=== PATIENT | female | born 1975 | race Caucasian/White ===

== ENCOUNTER 2016-07-11 08:13 | Inpatient (IN) | payer OTHER ==
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
[2016-07-11 09:29] LABS: COLOR AMBER; LEUKOCYTE ESTERASE,URINE NEGATIVE (NEGATIVE); NITRITE,URINE NEGATIVE (NEGATIVE)
[2016-07-11 09:38] LABS: BACTERIA TRACE /hpf (NONE SEEN); MUCUS 2+ /lpf (NONE-1+)
[2016-07-11 14:30] LABS: % IMMATURE GRANULYOCYTES 0.2 % (0.0-1.1); ABSOLUTE IMMATURE GRANULOCYTES 0.01 10^3/uL (0.00-0.10); ADD DIFF? NO; ADD MORPH? NO; ADD SCAN? NO; ATYPICAL LYMPHOCYTE FLAG 10 (0-99); FRAGMENT RBC FLAG 0 (0-99); HEMATOCRIT 38.8 % (38.0-47.0); HEMOGLOBIN 13.2 g/dL (12.6-16.3); LEFT SHIFT FLG 0 (0-99); LIPEMIA HEMOLYSIS FLAG 90 (0-99); MEAN CELL HEMOGLOBIN 31.4 pg (27.9-34.1); MEAN CELL VOLUME 92.2 fL (81.5-99.8); MEAN PLATELET VOLUME 10.2 fL (8.7-11.7); PLATELET CLUMPS FLAG 0 (0-99); PLATELET COUNT 247 10^3/uL (150-400); RED BLOOD CELL COUNT 4.21 10^6/uL (4.18-5.33); RED CELL DISTRIBUTION WIDTH 13.2 % (11.5-15.2)
[2016-07-11 14:43] LABS: ANION GAP 13 mEq/L (8-16); CALCIUM 9.3 mg/dL (8.5-10.4); CARBON DIOXIDE 24 mEq/l (22-31); CHLORIDE 101 mEq/L (97-110); CREATININE 0.5 mg/dL (0.6-1.0); ETHANOL SERUM < 10 mg/dL (0-10); GLOMERULAR FILTRATION RATE > 60; GLUCOSE 89 mg/dL (70-100); POTASSIUM 4.7 mEq/L (3.5-5.2); SODIUM 138 mEq/L (134-144)
[2016-07-11] MEDS ORDERED: HYDROmorphONE/DILAUDID 1 MG/ML SYR IVP ONE (14:48)
[2016-07-11] MEDS ORDERED: ONDANSETRON 4 MG/2 ML VIAL IVP PRN (15:10)
[2016-07-11] MEDS ORDERED: ACETAMINOPHEN 325 MG TAB PO PRN (15:10)
[2016-07-11] MEDS ORDERED: ONDANSETRON DISINTEGRATING 4 MG TAB PO PRN (15:10)
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
[2016-07-11] MEDS ORDERED: BISACODYL 10 MG SUPP PR PRN (17:29)
[2016-07-11] MEDS ORDERED: LACTULOSE 20 GM/30 ML UDCUP PO PRN (17:29)
[2016-07-11] MEDS ORDERED: POLYETHYLENE GLYCOL 3350 17 GM PKT PO PRN (17:29)
[2016-07-11] MEDS ORDERED: MAGNESIUM HYDROXIDE 30 ML UDCUP PO PRN (17:29)
--- NOTE | 2016-07-11 17:57 | SOAPPROG ---
SOAP Progress Note Assessment/Plan: Assessment: Plan: 07/11/16 17:54 R 5th MC fracture displaced and angulated. Plan for ORIF either as outpatient next week or Possibly tomorrow. Patient wishes to proceed. Full consult note dictated today. Objective: Vital Signs Temp Pulse Resp BP Pulse Ox 36.3 C 59 L 16 117/73 97 07/11/16 08:13 07/11/16 15:18 07/11/16 15:18 07/11/16 15:18 07/11/16 15:18 Laboratory Results 07/11/16 14:15 07/11/16 14:15 07/10/16 07/11/16 07/12/16 05:59 05:59 05:59 Intake Total 10 Balance 10 ICD10 Worksheet Patient Problems: Problems Problem Status Onset Fracture of fifth metacarpal bone Acute Pelvis ilium fracture Acute Rupture of anterior cruciate ligament of right knee Acute
--- NOTE | 2016-07-11 19:29 | GCON ---
[f rep st] CONSULTATION DATE OF CONSULTATION: 07/11/2016 REASON FOR CONSULTATION: Right 5th metacarpal fracture. HISTORY: The patient is a 41-year-old female who sustained a series of falls 2 days ago while hikin [place]. She has a history of traumatic brain injuries and has chronic encephalopathy. She does have abram e mild spastic hemiparesis on the left side and falls intermittently. She was hiking when this rece nt event occurred. Her situation worsened where she was having difficulty ambulating and had proble ms with her right hand when she sought treatment at [facility] Emergency Department. They identified a left iliac crest fracture and right 5th metacarpal shaft fracture. I was asked to see her specifically for a 5th metacarpal shaft fracture. The details of her injury and her past medical history are well detailed in her admission H and P, and her emergency department intake maulik smith. EXAMINATION: EXTREMITIES: Her right hand is in a short-arm splint. It extends just past the PIP j oint of the small finger. The ulnar 3 digits are included in her splint; however, the index finger and thumb are freed for pinch position. She has a grossly normal sensory examination to exposed sma ll finger and ring finger tips within her splint. Capillary refill is 2 seconds or less. RADIOLOGY: X-rays show a spiral oblique fracture of the 5th metacarpal shaft that is displaced and angulated. The shaft is rotated into supination versus proximal segment. IMPRESSIONS/RECOMMENDATIONS: Fifth metacarpal shaft fracture. It is unreduced and is improperly al igned. I think that the angular deformity will not be a problem, but the rotational deformity will be a considerable problem. I suspect with flexion of the small finger MP joint it will scissor acro ss the axis of the ring finger due to the supinated position of the metacarpal shaft versus the prox imal segment. This is best treated with open reduction, internal fixation with screw fixation follo wed by splint application. Juju will be unable to use her right hand for weightbearing in eithe r a walker or crutches. I think this would, however, be obviated somewhat with the use of a platfor m attachment either to a crutch or walker. Due to balance issues, it has, I think, been pre-establi shed that crutches are not suitable for her due to her pre-existing brain injury and encephalopathy. We will plan to treat her either early next week as an outpatient or possibly tomorrow while an inpa tient and recovering from the hip fracture to the extent where she is able to ambulate. I will wait and see what the patient's desires are in terms of treating this as quickly as possible, or as an o utpatient next week. /[id number]/MODL
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
[2016-07-11] MEDS: SENNOSIDES/DOCUSATE SODIUM TAB PO SCH (21:11)
[2016-07-11] MEDS: ACETAMINOPHEN 325 MG TAB PO SCH (21:11)
[2016-07-12 05:24] LABS: ANION GAP 10 mEq/L (8-16); CALCIUM 9.5 mg/dL (8.5-10.4); CARBON DIOXIDE 24 mEq/l (22-31); CHLORIDE 105 mEq/L (97-110); CREATININE 0.6 mg/dL (0.6-1.0); GLOMERULAR FILTRATION RATE > 60; GLUCOSE 103 mg/dL (70-100); POTASSIUM 4.7 mEq/L (3.5-5.2); SODIUM 139 mEq/L (134-144)
[2016-07-12] MEDS: ACETAMINOPHEN 325 MG TAB PO SCH ×3 (05:58→19:56)
[2016-07-12] MEDS ORDERED: Herbals/Supplements -Info Only PO SCH (09:00)
[2016-07-12] MEDS: ENOXAPARIN 40 MG/0.4 ML SYR SC SCH (09:48)
[2016-07-12] MEDS: OMEGA-3 FATTY ACIDS 1,000 MG CAP PO SCH (09:49)
[2016-07-12] MEDS: CYANO/VITAMIN B12 1000 MCG TAB PO SCH (09:49)
[2016-07-12] MEDS: SENNOSIDES/DOCUSATE SODIUM TAB PO SCH ×2 (09:49→19:52)
--- NOTE | 2016-07-12 11:21 | HOSPPROG ---
Hospitalist Progress Note Assessment/Plan: Patient is a 41-year-old female who presented with left hip pain after sustaining a fall while hiking. She was hiking and tripped and fell on her right hand and immediately had sharp pain. She then fell backwards and hit her left hip on a rock. Today is my 1st encounter with the patient. Chart reviewed. * 5th metatarsal fx: OR now with Dr Bauer *Two nondisplaced left iliac wing fx -Dr Navarro to see * gait instability/frequent falling - Will ask Physical therapy and Occupational therapy to further evaluate - have also ordered an inpatient rehabilitation consult * traumatic brain injury/ one in 1996 and the 2nd in 2002 - likely impacting the above *CHI * DVT prophylaxis - low molecular weight heparin Plan: OR now/ patient has asked me to call her sisterUte/ which I did ([phone]) Subjective: Juju is not complaining of any pain except to the left hip area. Objective: Vital Signs Temp Pulse Resp BP Pulse Ox 36.6 C 63 16 100/63 84 L 07/12/16 08:00 07/12/16 08:00 07/12/16 08:00 07/12/16 08:00 07/12/16 08:00 Laboratory Results 07/11/16 14:15 07/12/16 04:54 07/11/16 07/12/16 07/13/16 05:59 05:59 05:59 Intake Total 860 Output Total 1500 100 Balance -640 -100 - Physical Exam Constitutional: other (thin) Eyes: PERRL Ears, Nose, Mouth, Throat: hearing normal Cardiovascular: regular rate and rhythym Respiratory: no respiratory distress Skin: warm, other ( right hand in a dressing) Musculoskeletal: muscular tenderness, generalized weakness Neurologic: AAOx3 Psychiatric: interacting appropriately ICD10 Worksheet Patient Problems: Problems Problem Status Onset Fracture of fifth metacarpal bone Acute Pelvis ilium fracture Acute Rupture of anterior cruciate ligament of right knee Acute
[2016-07-12] MEDS ORDERED: BUPIVACAINE 0.25% 30 ML SDV ONE (12:06)
[2016-07-12] MEDS ORDERED: BACITRACIN 50,000 UNITS/10 ML SYR IRR ONE (12:06)
[2016-07-12] MEDS ORDERED: fentaNYL 100 MCG/2 ML INJ ONE ×2 (12:08→13:54)
[2016-07-12] MEDS ORDERED: PROPOFOL/EMULSION 500 MG/50 ML BOTTLE IV ONE (12:08)
[2016-07-12] MEDS ORDERED: LIDOCAINE 2% 100 MG/5 ML SYR ONE (12:10)
[2016-07-12] MEDS ORDERED: ceFAZolin 2 GM/DEXTROSE 100 ML IV ONE (12:30)
[2016-07-12] MEDS ORDERED: MIDAZOLAM 2 MG/2 ML VIAL ONE (12:33)
[2016-07-12] MEDS ORDERED: PHENYLEPHRINE HCL 100 MCG/ML SYR ONE (12:45)
[2016-07-12] MEDS ORDERED: KETOROLAC 30 MG/1 ML SDV ONE (13:15)
--- NOTE | 2016-07-12 13:39 | POSTOPPROG ---
Post Op Note Date of Operation: 07/12/16 Surgeon: Deon Bauer Anesthesiologist: ya Anesthesia: LMA Pre-op Diagnosis: R 5th MC shaft Fx Post-op Diagnosis: Same Procedure: ORIF R 5th MC shaft Fx Inf/Abcess present in the surg proc area at time of surgery?: No EBL: Minimal Complications: None
--- NOTE | 2016-07-12 14:02 | GOP ---
[f rep st] OPERATIVE REPORT DATE OF OPERATION: 07/12/2016 SURGEON: Deon Bauer MD PREOPERATIVE DIAGNOSIS: Right 5th metacarpal shaft displaced angulated fracture. POSTOPERATIVE DIAGNOSIS: Right 5th metacarpal shaft displaced angulated fracture. PROCEDURE PERFORMED: Open reduction, internal fixation, right 5th metacarpal fracture. FINDINGS: The reduction was anatomical and was held in position with a [employer]ynthes titanium modular saavedra d 2.0 DCP plate with 4 holes. INDICATIONS: The patient is a 41-year-old woman, who fell several days ago sustaining the above fra cture. The fracture is angulated and displaced to the extent, and it being a border digit, it is ne cessary to treat this with anatomical realignment and internal fixation. DESCRIPTION OF PROCEDURE: After routinely checking the patient's identification and consent, and a successful induction of LMA general anesthetic, the patient's right upper extremity was prepped and draped in the usual standard fashion. Exsanguinated the limb with an Esmarch wrap and pneumatic giacomo rniquet previously placed about the proximal right arm, was inflated to 250 mmHg. A surgical time-o ut was completed. A midline longitudinal incision centered over the 5th metacarpal shaft was britta d sharply through the skin, and then bluntly to her minimal subcutaneous layer. I dissected down to the level of the extensor tendons. I the extensor tendons and then performed a subperios teal dissection of the 5th metacarpal shaft. There was 1 small comminuted segment from the ulnar di stal aspect that was unattached to any soft tissue. As such, this was discarded. I evacuated fract ure hematoma. I then reduced the fracture. This appeared to be a long oblique fracture. However, the length of the obliquity was such that a very thin spicules of bone projected proximally on the r adial side segment. I reduced the fracture and held it reduced with a pointed bone tenaculum. I th en affixed the above-noted plate. The 3rd screw from most proximal was placed in a lag screw fashio n, across the fracture. The remaining screws were placed in standard AO technique. Excellent purch ase was achieved with the screws. The FluoroScan unit were used to verify that the fracture was fuentes tomically reduced and the hardware was appropriately positioned. Satisfied with this, I irrigated t he wound once again, and closed the periosteum over the plate, with 3-0 Vicryl suture. The subcutan eous layer was closed with 3-0 Vicryl and the skin with subcuticular 4-0 Monocryl, followed by Steri -Strips. A sterile bulky dressing was applied followed by a plaster ulnar gutter splint. The patie nt was reversed from her anesthetic and extubated in the operating room. She was transferred to the recovery room in excellent condition. She tolerated procedure well. There were no complications. /[id number]/MODL
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
[2016-07-12] MEDS: ceFAZolin 2 GM/DEXTROSE 100 ML IV SCH (19:52)
[2016-07-12] MEDS: oxyCODONE IR 5 MG TAB PO PRN (19:55)
[2016-07-13] MEDS: ceFAZolin 2 GM/DEXTROSE 100 ML IV SCH (05:11)
[2016-07-13] MEDS: ACETAMINOPHEN 325 MG TAB PO SCH ×3 (05:11→20:32)
[2016-07-13] MEDS: CYANO/VITAMIN B12 1000 MCG TAB PO SCH (09:39)
[2016-07-13] MEDS: ENOXAPARIN 40 MG/0.4 ML SYR SC SCH (09:39)
[2016-07-13] MEDS: SENNOSIDES/DOCUSATE SODIUM TAB PO SCH ×2 (09:39→20:33)
[2016-07-13] MEDS: OMEGA-3 FATTY ACIDS 1,000 MG CAP PO SCH (09:39)
[2016-07-13] MEDS: oxyCODONE IR 5 MG TAB PO PRN ×3 (09:44→20:33)
--- NOTE | 2016-07-13 11:48 | SOAPPROG ---
SOPETRONA Progress Note Assessment/Plan: Assessment:Doing fine Plan:OK to go to rehab. She has already made a F/U appointment with me for her right hand fracture. Subjective: Pain control adequate Objective: Vital Signs Temp Pulse Resp BP Pulse Ox 36.6 C 57 L 18 139/78 H 95 07/13/16 11:30 07/13/16 11:30 07/13/16 11:30 07/13/16 11:30 07/13/16 11:30 Laboratory Results 07/11/16 14:15 07/12/16 04:54 07/12/16 07/13/16 07/14/16 05:59 05:59 05:59 Intake Total 860 2400 Output Total 1500 2300 Balance -640 100 CSMT intact in exposed right small finger. Splint comfortable and intact ICD10 Worksheet Patient Problems: Problems Problem Status Onset Fracture of fifth metacarpal bone Acute Pelvis ilium fracture Acute Rupture of anterior cruciate ligament of right knee Acute
--- NOTE | 2016-07-13 12:09 | HOSPPROG ---
Hospitalist Progress Note Assessment/Plan: Patient is a 41-year-old female who presented with left hip pain after sustaining a fall while hiking. She was hiking and tripped and fell on her right hand and immediately had sharp pain. She then fell backwards and hit her left hip on a rock. * 5th metatarsal fx: s/p ORIF with Dr Bauer -has a f/u appt w him *Two nondisplaced left iliac wing fx -evaluated by orthopedic/WBAT * gait instability/frequent falling - OT is recommending IP rehab - using walker * traumatic brain injury/ one in 1996 and the 2nd in 2002 - likely impacting the above *Cannibis use -likely impacting her gait stability * DVT prophylaxis - low molecular weight heparin Plan: patient would benefit from IP rehab/ to evaluate Friday Subjective: Juju is doing well/ hopeful to go to rehab. Objective: Vital Signs Temp Pulse Resp BP Pulse Ox 36.6 C 57 L 18 139/78 H 95 07/13/16 11:30 07/13/16 11:30 07/13/16 11:30 07/13/16 11:30 07/13/16 11:30 Laboratory Results 07/11/16 14:15 07/12/16 04:54 07/12/16 07/13/16 07/14/16 05:59 05:59 05:59 Intake Total 860 2400 Output Total 1500 2300 Balance -640 100 - Physical Exam Constitutional: no apparent distress, other (thin) Eyes: PERRL Ears, Nose, Mouth, Throat: hearing normal Respiratory: no respiratory distress Skin: warm Musculoskeletal: generalized weakness Neurologic: AAOx3 Psychiatric: interacting appropriately, not anxious, not encephalopathic ICD10 Worksheet Patient Problems: Problems Problem Status Onset Fracture of fifth metacarpal bone Acute Pelvis ilium fracture Acute Rupture of anterior cruciate ligament of right knee Acute
[2016-07-14] MEDS: oxyCODONE IR 5 MG TAB PO PRN ×3 (05:19→21:03)
[2016-07-14] MEDS: ACETAMINOPHEN 325 MG TAB PO SCH ×3 (05:19→21:02)
[2016-07-14] MEDS: SENNOSIDES/DOCUSATE SODIUM TAB PO SCH ×2 (08:40→21:03)
[2016-07-14] MEDS: ENOXAPARIN 40 MG/0.4 ML SYR SC SCH (08:40)
[2016-07-14] MEDS: OMEGA-3 FATTY ACIDS 1,000 MG CAP PO SCH (08:40)
[2016-07-14] MEDS: CYANO/VITAMIN B12 1000 MCG TAB PO SCH (08:40)
--- NOTE | 2016-07-14 10:34 | HOSPPROG ---
Hospitalist Progress Note Assessment/Plan: Patient is a 41-year-old female who presented with left hip pain after sustaining a fall while hiking. She was hiking and tripped and fell on her right hand and immediately had sharp pain. She then fell backwards and hit her left hip on a rock. * 5th metatarsal fx: s/p ORIF with Dr Bauer -has a f/u appt w him *Two nondisplaced left iliac wing fx -evaluated by orthopedic/WBAT * gait instability/frequent falling - OT is recommending IP rehab - using walker/doing overall well with ambulation * traumatic brain injury/ one in 1996 and the 2nd in 2002 - likely impacting the above *Cannibis use -likely impacting her gait stability * DVT prophylaxis - low molecular weight heparin Plan: patient would benefit from IP rehab/ to evaluate Friday Subjective: Juju has some pain at left hip area and in her right hand, but overall is manageable. Objective: Vital Signs Temp Pulse Resp BP Pulse Ox 36.3 C 68 15 112/72 98 07/14/16 08:00 07/14/16 08:00 07/14/16 08:00 07/14/16 08:00 07/14/16 08:00 Laboratory Results 07/11/16 14:15 07/12/16 04:54 07/13/16 07/14/16 07/15/16 05:59 05:59 05:59 Intake Total 2400 1900 Output Total 2300 Balance 100 1900 - Physical Exam Constitutional: no apparent distress, other (thin) Eyes: PERRL Ears, Nose, Mouth, Throat: hearing normal Cardiovascular: regular rate and rhythym Respiratory: no respiratory distress Skin: warm Musculoskeletal: generalized weakness Neurologic: AAOx3 Psychiatric: interacting appropriately ICD10 Worksheet Patient Problems: Problems Problem Status Onset Fracture of fifth metacarpal bone Acute Pelvis ilium fracture Acute Rupture of anterior cruciate ligament of right knee Acute
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
[2016-07-14 23:30] VITALS: TEMP 97.6
[2016-07-15] MEDS: ACETAMINOPHEN 325 MG TAB PO SCH ×2 (06:46→13:36)
[2016-07-15 07:57] VITALS: BP 121/74; PULSE 70; RESP 15; O2SAT 97
[2016-07-15] MEDS: OMEGA-3 FATTY ACIDS 1,000 MG CAP PO SCH (09:08)
[2016-07-15] MEDS: SENNOSIDES/DOCUSATE SODIUM TAB PO SCH (09:08)
[2016-07-15] MEDS: CYANO/VITAMIN B12 1000 MCG TAB PO SCH (09:08)
[2016-07-15] MEDS: ENOXAPARIN 40 MG/0.4 ML SYR SC SCH (09:08)
[2016-07-15] MEDS: oxyCODONE IR 5 MG TAB PO PRN ×2 (09:10→13:36)
--- NOTE | 2016-07-15 11:14 | HOSPPROG ---
Hospitalist Progress Note Assessment/Plan: Patient is a 41-year-old female who presented with left hip pain after sustaining a fall while hiking. She was hiking and tripped and fell on her right hand and immediately had sharp pain. She then fell backwards and hit her left hip on a rock. * 5th metatarsal fx: s/p ORIF with Dr Bauer -has a f/u appt w him *Two nondisplaced left iliac wing fx -evaluated by orthopedic/WBAT * gait instability/frequent falling - declining SNF if she can't go to rehb - using walker/doing overall well with ambulation * traumatic brain injury/ one in 1996 and the 2nd in 2002 - likely impacting the above *Cannibis use -likely impacting her gait stability * DVT prophylaxis - low molecular weight heparin Plan: patient doesn't qualify for IP rehab/ reviewed this with Jessenia/ spoke with Patient's sister, Ute, who has been her sister's advocate and support. Ute is also an OT/ the patient doesn't want to go to SNF even just for rehab. Her sister feels she will be fine if she has a script for a platform walker/ right side and her sister is getting her a wheelchair. Home care will be ordered. Her sister will be sure she has enough food and support at home. The patient lives with her boyfriend who is home in the evenings/ Subjective: Juju is upset she can't go to IP rehab/ declining SNF/ says she will be fine at home Objective: Vital Signs Temp Pulse Resp BP Pulse Ox 36.4 C 70 15 121/74 H 97 07/15/16 07:56 07/15/16 07:56 07/15/16 07:56 07/15/16 07:56 07/15/16 07:56 Laboratory Results 07/11/16 14:15 07/12/16 04:54 07/14/16 07/15/16 07/16/16 05:59 05:59 05:59 Intake Total 1900 1800 Balance 1900 1800 - Physical Exam Constitutional: no apparent distress, other (thin) Eyes: PERRL Ears, Nose, Mouth, Throat: hearing normal Respiratory: no respiratory distress Skin: warm Musculoskeletal: generalized weakness Neurologic: AAOx3 Psychiatric: interacting appropriately, other (impulsive) ICD10 Worksheet Patient Problems: Problems Problem Status Onset Fracture of fifth metacarpal bone Acute Pelvis ilium fracture Acute Rupture of anterior cruciate ligament of right knee Acute
--- NOTE | 2016-07-15 11:44 | PDIAF ---
- Diagnosis Diagnosis: 5th metatarsal fx s/p ORIF, 2 nondisplaced iliac wing fx, TBI Code Status: Full Code - Medication Management Discharge Medications: Medications to Continue on Transfer medroxyPROGESTERone [Depo-Provera 150 mg/ml (*)] 150 mg IM Q90D 10/13/15 [Last Taken 11/23/15] Cyanocobalamin [Vitamin B12 (*)] 1,000 mcg PO DAILY 07/11/16 [Last Taken ] Herbals/Supplements -Info Only 1 ea PO DAILY 07/11/16 [Last Taken Unknown] [employer]-3 Fatty Acids [Fish Oil 1000 mg (*)] 1,000 mg PO DAILY 07/11/16 [Last Taken 07/11/16] Acetaminophen [Tylenol 325mg (*)] 650 mg PO Q8 #0 tab 07/15/16 [Last Taken Unknown] Polyethylene Glycol 3350 [Miralax 17 gm (*)] 17 gm PO DAILY PRN #0 pkt 07/15/16 [Last Taken Unknown] Sennosides/Docusate Sodium [Senokot-S] 1 - 2 tab PO BID #0 tab 07/15/16 [Last Taken Unknown] Discharge Medications: Refer to the Discharge Home Medication list for PRN reason. PICC Care - Routine: N/A - Orders Services needed: Home Care, Physical Therapy, Occupational Therapy Home Care Face to Face: I certify that this patient was under my care and that I had the required [id number] encounter meeting the encounter requirements on the discharge day. My findings support the fact that the patient is homebound as defined in CMS Chapter 7 Medicare Benefits Manual 30.1.1, The condition of the patient is such that there exists a normal inability to leave home and consequently, leaving home would require a considerable and taxing effort. Diet Recommendation: no restrictions on diet Diet Texture: Regular Texture Diet Additional: he patient is safe to use a wheelchair. You have been referred to a hand specialist and an orthopedic surgery. You have an appointment at [facility], on July 15, at 1:30. Please arrive at 1:15pm, for check in. They are located at [address] [place] [address]. . Wear splint until you are reevaluated by a hand surgeon. Please call Dr. Bauer's office today to arrange for surgery as soon as possible. Due to hand injury, do not use crutches or walker, until you are evaluated by the hand surgeon. Use your wheelchair until reassessed by orthopedic surgeon. I recommend Ibuprofen ( Motrin, Advil) or Naproxen Sodium (Aleve) for pain and anti-inflammatory effects. You may take either one, but do not take both. Your dose is: Ibuprofen 600 mg every 6-8 hours with food. OR. Naproxen Sodium (Aleve) 220 mg every 12 hours. A script has been faxed in for a platform walker to [facility] - Follow Up Care Current Providers and Referrals: Simone Boone MD [Medical Doctor] - As per Instructions Deon Bauer MD [Medical Doctor] - As per Instructions (Pt is encouraged to follow up w/ Dr. Bauer 10-14 days postoperatively, or sooner with any additional concerns or complaints. She is encouraged to contact the office as soon as possible to schedule this appointment.) Ayleen Goncalves MD [Primary Care Provider] - As per Instructions
--- NOTE | 2016-07-15 14:16 | GDS ---
[f rep st] DISCHARGE SUMMARY DISCHARGE DIAGNOSES: 1. Fifth metatarsal fracture. 2. Nondisplaced left iliac wing fractures. 3. Gait instability with frequent falling. 4. Traumatic brain injury, one in 1996, and the second in 2002. 5. Cannabis use. CONSULTATIONS DURING HER STAY: 1. Dr. Deon Bauer. 2. Dr. Paula Amaya. 3. Dr. Simone Boone. HISTORY: The patient is a 41-year-old female who has a history of 2 traumatic brain injuries. She presented to the emergency room with left hip pain after falling 2 days prior to her admission. She was hiking and tripped and fell on the right hand and immediately had sharp pain. She then leaned backwards and hit her left hip on a rock. She came to the hospital for further evaluation. She was evaluated by [facility]. She had a CT of her pelvis, which showed 2 nondisplaced left iliac wing fractures. No hip fracture. Her hand x-ray showed an acute minimally displaced midshaft metacarpal fracture. She was seen and evaluated by Dr. Bauer. On 07/12/2016 she had an open reduction internal fixation of a right 5th metacarpal fracture. She has been ambulating well with a platform walker. She has declined to go to a nursing home facility. I have spoken with her sister, Ute, who is an occupational therapist, who will provide good support for her sister. In addition, she will get home care, PT, and OT. HOSPITAL COURSE PER PROBLEM: 1. Fifth metatarsal fracture. She is status post ORIF. She is doing well. She has followup with Dr Bauer. 2. Nondisplaced left iliac wing fractures. She was evaluated by Dr. Boone. She can be weightbearing as tolerated. 3. Gait instability with frequent falling. She is actually doing quite well with the walker. 4. Traumatic brain injury, one in 1996, and the second in 2002. This is likely impacting her gait instability. 5. Cannabis use. Recommending she avoid this because this also will increase her risk of falling. PENDING LABS AND TESTS: None. CONDITION AT DISCHARGE: Stable. Blood pressure is 121/74, respiratory rate is 15, heart rate is 70, O2 saturation on room air 97%, temperature 36.4 Celsius. MEDICATIONS AT DISCHARGE: Please see the EMR. DISCHARGE INSTRUCTIONS: 1. It is okay for her to use a wheelchair. She has been referred to hand specialist and Orthopedic Surgery. She has an appointment at [facility] on July 15 at 1:30. 2. Wear her splint until she is re-evaluated by the hand surgeon. 3. Use ibuprofen or Aleve for pain and anti-inflammatory effects. She can take either one, but not to take both. 4. A script has been faxed for a platform walker to [facility]. 5. If she develops any fever, chills, chest pain, or worsening pain to return to the ER. Greater than 30 minutes discharging and coordinating care. /[id number]/MODL MTDD
== END 2016-07-15 18:12 | disposition home health service (06) | DRG 513 ==
LOC: OBSVTOIN 14:14 → F3N 15:55
PROVIDERS: ADMIT Internal Medicine; ATTEND Internal Medicine
PROC: 0PSP04Z Reposition Right Metacarpal with Internal Fixation Device, Open Approach (ICD-10-PCS; principal; 2016-07-12 12:00)
DX: S62.326A Displaced fracture of shaft of fifth metacarpal bone, right hand, initial encounter for closed fracture (principal); S32.392A Other fracture of left ilium, initial encounter for closed fracture; S92.351A Displaced fracture of fifth metatarsal bone, right foot, initial encounter for closed fracture; W01.0XXA Fall on same level from slipping, tripping and stumbling without subsequent striking against object, initial encounter; Y93.01 Activity, walking, marching and hiking; R29.6 Repeated falls; R26.89 Other abnormalities of gait and mobility; F12.90 Cannabis use, unspecified, uncomplicated; Z87.820 Personal history of traumatic brain injury; Z72.0 Tobacco use; Z80.3 Family history of malignant neoplasm of breast
CPT/HCPCS: 80305; 92523-GN; 96374; 97116-GP; 97161-GP; 97166-GO; 97530-GO; 97535-GO; C1713; G0480; G8978-GP-CJ; G8979-GP-CI; G8987-GO-CK; G8988-GO-CI; G9165-GN-CI; G9166-GN-CI; G9167-GN-CI; J0690; J1170; J1650; J1885; J2001; J2250; J2370; J2704; J3010

== ENCOUNTER → 2017-01-08 | Outpatient (CLI) | payer OTHER | LOC: BMCIMAGING 07:41 | DX: Z12.31 Encounter for screening mammogram for malignant neoplasm of breast (principal); Z80.3 Family history of malignant neoplasm of breast | CPT/HCPCS: G0202 ==

== ENCOUNTER → 2017-01-24 | Outpatient (CLI) | payer OTHER | LOC: BMCIMAGING 10:43 | PROVIDERS: ATTEND Family Medicine | DX: R92.8 Other abnormal and inconclusive findings on diagnostic imaging of breast (principal) | CPT/HCPCS: 76641; G0206 ==

== ENCOUNTER → 2017-04-07 | Outpatient (CLI) | payer OTHER | LOC: BMCIMAGING 10:55 | PROVIDERS: ATTEND Family Medicine | DX: S49.91XA Unspecified injury of right shoulder and upper arm, initial encounter (principal); W01.0XXA Fall on same level from slipping, tripping and stumbling without subsequent striking against object, initial encounter; Y93.01 Activity, walking, marching and hiking ==

== ENCOUNTER → 2017-06-20 | Outpatient (CLI) | payer OTHER | LOC: FIMAGING 06-18 13:07 | PROVIDERS: ATTEND Physician Assistant | DX: S83.31XA Tear of articular cartilage of right knee, current, initial encounter (principal); M94.8X6 Other specified disorders of cartilage, lower leg; M22.41 Chondromalacia patellae, right knee; M71.21 Synovial cyst of popliteal space [Baker], right knee ==

== ENCOUNTER → 2017-07-28 | Outpatient (CLI) | payer OTHER | LOC: BMCIMAGING 09:34 | DX: R92.8 Other abnormal and inconclusive findings on diagnostic imaging of breast (principal) ==

== ENCOUNTER 2018-08-29 22:55 | Emergency (ER) | payer OTHER ==
--- NOTE | 2018-08-29 23:27 | EDPHY ---
H & P Time Seen by Provider: 08/29/18 23:13 HPI/ROS: Chief complaint: Left elbow injury History of present illness: This is a 43-year-old female presents to the emergency department for evaluation of a left elbow injury. Earlier today she tripped and fell onto the left elbow. She did not think anything of the injury as it did not cause her significant discomfort. However she eventually noticed some bleeding from the back of her elbow. She talked to her sister who brought her to the emergency department for evaluation of the elbow. Minimal pain. She can still move the elbow well. No abnormal coolness or paresthesias in the arm. No other trauma reported. Her tetanus is up-to-date. Smoking Status: Current some day smoker Physical Exam: General: Alert, nontoxic. Skin: She has a 3 cm laceration to the olecranon region of the left elbow. Exploration does not reveal extension into deep structures. No foreign body contamination appreciated. Musculoskeletal: She is flexing and extending the elbow and supinating and pronating the forearm without difficulty. Vascular: Radial pulses 2+. Neurologic: Sensation at baseline, history of traumatic brain injury. Constitutional: Initial Vital Signs Temperature (C) 36.5 C 08/29/18 22:57 Heart Rate 70 08/29/18 22:57 Respiratory Rate 16 08/29/18 22:57 Blood Pressure 112/67 08/29/18 22:57 O2 Sat (%) 99 08/29/18 22:57 O2 Delivery Mode Room Air Allergies/Adverse Reactions: cat dander Allergy (Verified 08/29/18 23:01) Home Medications: Medication Instructions Recorded NK [No Known Home Meds] 08/29/18 MDM/Departure - MDM Imaging: I viewed and interpreted images myself Procedures: Procedure: Laceration repair. Verbal consent was obtained from the patient. The 3 cm laceration on the left olecranon region was anesthetized in the usual fashion. The wound was irrigated , draped and explored to its base with a gloved finger. There were no deep structures involved. No tendon injury was identified. The wound was repaired with 4 0 Ethilon, 8 simple interrupted sutures. The wound repair was simple. The procedure was performed by myself. ED Course/Re-evaluation: Patient is discussed with my secondary supervising physician Dr. Alberto Rolle. Patient presents to the emergency department for a left elbow injury. Left arm appears to be a neurovascular baseline. X-rays appear negative. The laceration is explored, deep structures do not appear to be involved. It is anesthetized, cleaned, repaired and dressed. She is discharged home to follow up with a primary care doctor for recheck. Home care is discussed. Return precautions are given. Differential Diagnosis: Included but not limited to soft tissue injury, bony fracture, foreign body contamination - Depart Disposition: Home, Routine, Self-Care Clinical Impression: Elbow laceration Qualifiers: Encounter type: initial encounter Laterality: left Qualified Code(s): S51.012A - Laceration without foreign body of left elbow, initial encounter Condition: Good Instructions: Care For Your Stitches (ED), Laceration (ED), Acute Wounds (ED) Additional Instructions: Follow-up with your primary care doctor for further evaluation and care Stitches are to be removed in 12-14 days If symptoms worsen or new symptoms develop return to the emergency department for recheck Referrals: Bhavya Mayfield DO [Primary Care Provider] - As per Instructions
[2018-08-30 00:21] VITALS: BP 128/75
== END 2018-08-30 00:15 | disposition home or self-care (01) ==
PROC: 0HQEXZZ Repair Left Lower Arm Skin, External Approach (ICD-10-PCS; principal; 2018-08-29)
DX: S51.012A Laceration without foreign body of left elbow, initial encounter (principal); W01.0XXA Fall on same level from slipping, tripping and stumbling without subsequent striking against object, initial encounter